=== PATIENT | female | born 1995 | race African-American/Black ===

== ENCOUNTER 2017-03-15 16:25 | Emergency (ER) | payer SELFPAY ==
[~2017-03-15] VITALS: Ht 162.6 cm; Wt 63.5 kg
[2017-03-15 16:31] VITALS: BP 135/84; PULSE 85; RESP 15; TEMP 97.9; O2SAT 99
--- NOTE | 2017-03-15 16:35 | PD ---
Physical Exam Time Seen by Provider: 16:33 Narrative 21 y/o female with vaginal bleeding for 3-4 months, lightheadedness intermittently for one month. Vital signs reviewed. Seen at triage desk. Awaiting bed placement. Data Data Last Documented VS Vital Signs Date Time Temp Pulse Resp B/P Pulse Ox O2 Delivery O2 Flow Rate FiO2 03/15/17 16:31 97.9 85 15 135/84 99 MDM Medical Record Reviewed: Yes Supervised Visit with [facility]: No Scripts No Active Prescriptions or Reported Meds Mario Gutierrez March 15, 2017 16:35
[2017-03-15] MEDS ORDERED: SODIUM CHLOR 0.9% 1000 ML INJ 1,000 ML IV SCH (17:08)
[2017-03-15] MEDS ORDERED: SODIUM CHLORIDE 0.9% FLUSH 10 ML FLUSH IV FLUSH PRN (17:15)
--- NOTE | 2017-03-15 17:52 | PD ---
HPI Chief Complaint: Dizziness Time Seen by Provider: 17:24 Travel History International Travel<30 days: No Contact w/Intl Traveler<30days: No Traveled to known affect area: No History of Present Illness HPI 21-year-old female presents with dizziness which has fairly severe tonight but has been lasting for 3 months. Patient states she's been having a period ever since November. She states she was on control the past but it didn't work for her since she has not followed up with her MARKETING DEVELOPMENT REPRESENTATIVE since turning 20 in April. She states she's been bleeding on-and-off sporadically and has a history of irregular periods. She denies blood clot passage. She states that today at work she was feeling fairly dizzy and her boss that she didn't look well and sent her home and the patient decided to come the emergency department to be seen. She denies any chest pain shortness of breath abdominal pain nausea vomiting or diarrhea. PFSH Past Medical History Cardiovascular Problems: Yes (HTN) Hypertension: Yes (NO LONGER ON MEDS) ?: Not Social History Alcohol Use: No Tobacco Use: No Substance Use: No Allergies-Medications (Allergen,Severity, Reaction): Coded Allergies: No Known Allergies (Unverified , 03/15/17) Reported Meds & Prescriptions Reported Meds & Active Scripts Active Ferrous Sulfate 325 Mg Tab 325 Mg PO DAILY Review of Systems Except as stated in HPI: all other systems reviewed are Neg Physical Exam Narrative GENERAL: Well-developed well-nourished no apparent distress SKIN: Focused skin assessment warm/dry. HEAD: Atraumatic. Normocephalic. EYES: Pupils equal and round. No scleral icterus. No injection or drainage. No conjunctival pallor. ENT: No nasal bleeding or discharge. Mucous membranes pink and moist. NECK: Trachea midline. No JVD. CARDIOVASCULAR: Regular rate and rhythm. No murmur appreciated. RESPIRATORY: No accessory muscle use. Clear to auscultation. Breath sounds equal bilaterally. GASTROINTESTINAL: Abdomen soft, non-tender, nondistended. Hepatic and splenic margins not palpable. GENITOURINARY: Exam performed with female nurse lock tender present at all times, there is minimal blood in the posterior fornix, no cervical motion tenderness no cervical lesions seen. No bimanual tenderness no cervical motion tenderness. MUSCULOSKELETAL: No obvious deformities. No clubbing. No cyanosis. No edema. NEUROLOGICAL: Awake and alert. No obvious cranial nerve deficits. Motor grossly within normal limits. Normal speech. PSYCHIATRIC: Appropriate mood and affect; insight and judgment normal. Data Data Last Documented VS Vital Signs Date Time Temp Pulse Resp B/P Pulse Ox O2 Delivery O2 Flow Rate FiO2 03/15/17 19:45 76 18 100/58 98 03/15/17 18:04 Room Air 03/15/17 16:31 97.9 Orders Basic Metabolic Panel (Bmp) (03/15/17 17:08) Complete Blood Count With Diff (03/15/17 17:08) Urinalysis - C+S If Indicated (03/15/17 17:08) Iv Access Insert/Monitor (03/15/17 17:08) Ecg Monitoring (03/15/17 17:08) Oximetry (03/15/17 17:08) Sodium Chlor 0.9% 1000 Ml Inj (Ns 1000 M (03/15/17 17:08) Sodium Chloride 0.9% Flush (Ns Flush) (03/15/17 17:15) Electrocardiogram (03/15/17 17:08) Ed Urine Pregnancytest Poc (03/15/17 17:08) Wet Prep Profile (03/15/17 17:08) Gc And Chlamydia Pcr (03/15/17 17:08) Labs Laboratory Tests Test 03/15/17 17:45 White Blood Count 7.9 TH/MM3 Red Blood Count 3.93 MIL/MM3 Hemoglobin 9.9 GM/DL Hematocrit 31.5 % Mean Corpuscular Volume 80.2 FL Mean Corpuscular Hemoglobin 25.3 PG Mean Corpuscular Hemoglobin 31.5 % Concent Red Cell Distribution Width 14.2 % Platelet Count 291 TH/MM3 Mean Platelet Volume 8.0 FL Neutrophils (%) (Auto) 52.1 % Lymphocytes (%) (Auto) 34.6 % Monocytes (%) (Auto) 10.3 % Eosinophils (%) (Auto) 2.3 % Basophils (%) (Auto) 0.7 % Neutrophils # (Auto) 4.1 TH/MM3 Lymphocytes # (Auto) 2.8 TH/MM3 Monocytes # (Auto) 0.8 TH/MM3 Eosinophils # (Auto) 0.2 TH/MM3 Basophils # (Auto) 0.1 TH/MM3 CBC Comment DIFF FINAL Differential Comment Urine Color YELLOW Urine Turbidity CLEAR Urine pH 6.0 Urine Specific [place] 1.024 Urine Protein NEG mg/dL Urine Glucose (UA) NEG mg/dL Urine Ketones NEG mg/dL Urine Occult Blood SMALL Urine Nitrite NEG Urine Bilirubin NEG Urine Urobilinogen LESS THAN 2.0 MG/DL Urine Leukocyte Esterase TRACE Urine RBC 1 /hpf Urine WBC 2 /hpf Urine Squamous Epithelial 4 /hpf Cells Urine Mucus FEW /lpf Microscopic Urinalysis Comment CULT NOT INDICATED Sodium Level 139 MEQ/L Potassium Level 3.7 MEQ/L Chloride Level 106 MEQ/L Carbon Dioxide Level 27.3 MEQ/L Anion Gap 6 MEQ/L Blood Urea Nitrogen 9 MG/DL Creatinine 0.72 MG/DL Estimat Glomerular Filtration 123 ML/MIN Rate Random Glucose 70 MG/DL Calcium Level 8.3 MG/DL [facility] Medical Decision Making Medical Screen Exam Complete: Yes Emergency Medical Condition: Yes Interpretation(s) EKG shows normal sinus rhythm with sinus arrhythmia, normal axis and normal R- wave progression. Minimal ST elevation in V2 solitary change appears to be consistent with early repolarization. Nonspecific RSR prime pattern in the same lead. This is nonspecific and non-ischemic EKG. Differential Diagnosis Arrhythmia unlikely, anemia, dysfunctional uterine bleeding, . Narrative Course test negative, patient appears well in no apparent distress. She is mildly anemic with hemoglobin 9.9. Discussed iron pills. Discussed she needs follow-up with an MARKETING DEVELOPMENT REPRESENTATIVE and a referral was made. She will touch base with her patient assistance program as well. She is stable for discharge at this time. Diagnosis Primary Impression: DUB (dysfunctional uterine bleeding) Additional Impression: Anemia Qualified Code: D50.8 - Other iron deficiency anemia Referrals: Sabine Brian MD Med/Other Pt SpecificInfo: Prescription(s) given Scripts Ferrous Sulfate 325 Mg [id number] Mg PO DAILY #30 TAB Ref 0 Prov:Armin Spann MD 03/15/17 Disposition: 01 DISCHARGE HOME Condition: Stable Armin Spann MD March 15, 2017 17:52
[2017-03-15 18:03] VITALS: BP 123/79; PULSE 64; RESP 16; O2SAT 100
[2017-03-15 18:04] VITALS: O2SAT 100
[2017-03-15 18:07] LABS: AUTOMATED NEUTROPHIL # 4.1 TH/MM3 (1.8-7.7); BASOPHIL # 0.1 TH/MM3 (0-0.2); BASOPHIL % 0.7 % (0.0-2.0); EOSINOPHIL # 0.2 TH/MM3 (0-0.4); EOSINOPHIL % 2.3 % (0.0-4.0); HEMATOCRIT 31.5 % (35.0-46.0); HEMO FLAGS DIFF FINAL; LYMPH % 34.6 % (9.0-44.0); LYMPHOCYTE # 2.8 TH/MM3 (1.0-4.8); MEAN CELL VOLUME 80.2 FL (80.0-100.0); MEAN CORPUSCULAR HEMOGLOBIN 25.3 PG (27.0-34.0); MEAN CORPUSCULAR HGB CONC 31.5 % (32.0-36.0); MONO % 10.3 % (0.0-8.0); NEUT % 52.1 % (16.0-70.0); PLATELET COUNT 291 TH/MM3 (150-450); RED BLOOD COUNT 3.93 MIL/MM3 (4.00-5.30); RED CELL DISTRIBUTION WIDTH 14.2 % (11.6-17.2); WHITE BLOOD COUNT 7.9 TH/MM3 (4.0-11.0)
[2017-03-15 18:15] LABS: BLOOD, URINE SMALL (NEG); GLUCOSE,URINE NEG (NEG); KETONE, URINE NEG (NEG); MUCUS URINE FEW /lpf (OCC); NITRITE,URINE NEG (NEG); SQUAMOUS EPITHELIAL CELL URINE 4 /hpf (0-5); URINE COLOR YELLOW (YELLW/STRAW)
[2017-03-15 18:17] LABS: COMMENT (UR) CULT NOT INDICATED; CULTURE IF INDICATED CULT NOT INDICATED
[2017-03-15 18:23] LABS: BICARBONATE 27.3 MEQ/L (21.0-32.0); POTASSIUM 3.7 MEQ/L (3.5-5.1)
[2017-03-15] MEDS ORDERED: FERR325T PO (18:58)
[2017-03-15 19:45] VITALS: BP 100/58
[2017-03-15 21:52] LABS: CHLAMYDIA PCR NOT DETECTED (NOT DETECT); NEISSERIA PCR NOT DETECTED (NOT DETECT)
[2017-03-16] MEDS ORDERED: HYDR-3533 PO ×2 (04:23→04:26)
[2017-03-16] MEDS ORDERED: CEPH-460 PO ×2 (04:23→04:26)
--- NOTE | 2017-03-16 08:51 | EKG ---
Date Performed: 03/15/2017 Time Performed: 17:32:23 PTAGE: 21 years EKG: Sinus rhythm WITH SINUS ARRHYTHMIA POSSIBLE RIGHT VENTRICULAR CONDUCTION DELAY NONSPECIFIC ST ELEVATION BORDERLIN E ECG NO PREVIOUS TRACING DOCTOR: José Miguel Mata Interpretating Date/Time 03/16/2017 08:49:19
== END 2017-03-15 19:57 | disposition home or self-care (01) ==
LOC: NEPD 16:25
DX: N93.8 Other specified abnormal uterine and vaginal bleeding (principal); D64.9 Anemia, unspecified; R42 Dizziness and giddiness; I10 Essential (primary) hypertension; I49.8 Other specified cardiac arrhythmias
CPT/HCPCS: 80048; 81001; 84703; 85025; 87210; 87491; 87591; 93005; 99284; J7030

== ENCOUNTER 2017-03-16 02:00 | Emergency (ER) | payer SELFPAY ==
[~2017-03-16] VITALS: Ht 162.6 cm; Wt 65.0 kg
[~2017-03-16 02:00] MED LIST: FERR325T PO
[2017-03-16 02:06] VITALS: BP 146/76; PULSE 104; RESP 18; TEMP 98.5; O2SAT 100
[2017-03-16] MEDS ORDERED: SODIUM CHLOR 0.9% 1000 ML INJ 1,000 ML IV SCH (02:16)
[2017-03-16] MEDS ORDERED: ONDANSETRON HCL 4 MG/2 ML VIAL IVP ONE (02:30)
[2017-03-16] MEDS ORDERED: ceFAZolin 2 GM PREMIX 50 ML IV ONE (02:30)
[2017-03-16] MEDS ORDERED: SODIUM CHLOR 0.9% 1000 ML INJ 1,000 ML IV ONE (02:30)
[2017-03-16] MEDS ORDERED: DIPHTH/TETANUS/ACEL PERTUSSIS (BOOSTER) 0.5 ML VIAL/PFS IM ONE (02:30)
[2017-03-16] MEDS ORDERED: SODIUM CHLORIDE 0.9% FLUSH 10 ML FLUSH IVF PRN (02:30)
[2017-03-16] MEDS ORDERED: MORPHINE SULFATE 4 MG/ML INJ IV ONE (02:30)
[2017-03-16 02:34] LABS: AUTOMATED NEUTROPHIL # 5.2 TH/MM3 (1.8-7.7); BASOPHIL % 0.4 % (0.0-2.0); EOSINOPHIL # 0.1 TH/MM3 (0-0.4); EOSINOPHIL % 1.2 % (0.0-4.0); HEMATOCRIT 30.4 % (35.0-46.0); HEMO FLAGS DIFF FINAL; LYMPH % 42.2 % (9.0-44.0); LYMPHOCYTE # 4.5 TH/MM3 (1.0-4.8); MEAN CELL VOLUME 80.4 FL (80.0-100.0); MEAN CORPUSCULAR HEMOGLOBIN 25.4 PG (27.0-34.0); MEAN CORPUSCULAR HGB CONC 31.5 % (32.0-36.0); MONO % 7.8 % (0.0-8.0); NEUT % 48.4 % (16.0-70.0); PLATELET COUNT 309 TH/MM3 (150-450); RED BLOOD COUNT 3.78 MIL/MM3 (4.00-5.30); RED CELL DISTRIBUTION WIDTH 14.4 % (11.6-17.2); WHITE BLOOD COUNT 10.8 TH/MM3 (4.0-11.0)
[2017-03-16 02:45] VITALS: O2SAT 99
[2017-03-16 02:48] LABS: APTT (PATIENT) 24.5 SEC (24.3-30.1); PROTHROMBIN TIME - PATIENT 11.4 SEC (9.8-11.6)
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
[2017-03-16 03:04] LABS: ALT (GPT) 27 U/L (10-53); ANION GAP 9 MEQ/L (5-15); AST (GOT) 26 U/L (15-37); BICARBONATE 23.4 MEQ/L (21.0-32.0); BLOOD UREA NITROGEN 11 MG/DL (7-18); CHLORIDE 106 MEQ/L (98-107); GLOMERULAR FILTRATION RATE 104 ML/MIN (>89); POTASSIUM 3.3 MEQ/L (3.5-5.1); SODIUM (NA) 138 MEQ/L (136-145)
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
[2017-03-16 03:06] LABS: ALKALINE PHOSPHATASE 78 U/L (45-117); TOTAL BILIRUBIN ADULT 0.3 MG/DL (0.2-1.0)
[2017-03-16 04:02] LABS: BLOOD, URINE SMALL (NEG); COMMENT (UR) CULT NOT INDICATED; CULTURE IF INDICATED CULT NOT INDICATED; GLUCOSE,URINE NEG (NEG); KETONE, URINE NEG (NEG); MUCUS URINE FEW /lpf (OCC); NITRITE,URINE NEG (NEG); SQUAMOUS EPITHELIAL CELL URINE 1 /hpf (0-5); URINE COLOR LIGHT-YELLOW (YELLW/STRAW)
[2017-03-16] MEDS ORDERED: ACETAMINOPHEN/HYDROcodone 325 MG/5 MG TAB PO ONE (04:15)
[2017-03-16] MEDS ORDERED: HYDR-3533 PO ×2 (04:23→04:26)
[2017-03-16] MEDS ORDERED: CEPH-460 PO ×2 (04:23→04:26)
== END 2017-03-16 05:26 | disposition home or self-care (01) ==
LOC: NEPC 02:00
DX: S41.101A Unspecified open wound of right upper arm, initial encounter (principal); M79.621 Pain in right upper arm; W34.00XA Accidental discharge from unspecified firearms or gun, initial encounter; Y92.39 Other specified sports and athletic area as the place of occurrence of the external cause; Z23 Encounter for immunization
CPT/HCPCS: 71010; 73060; 80053; 81001; 84703; 85025; 85610; 85730; 90471; 90715; 96374; 96375; 99283; J0690; J2270; J2405; J7030

== ENCOUNTER 2017-07-31 20:15 | Emergency (ER) | payer SELFPAY ==
[~2017-07-31 20:15] MED LIST changes: +CEPH-460 PO; +HYDR-3533 PO
[2017-07-31 20:17] VITALS: BP 130/61; PULSE 67; RESP 16; TEMP 98.5; O2SAT 99
[2017-07-31] MEDS ORDERED: SODIUM CHLOR 0.9% 1000 ML INJ 1,000 ML IV ONE (21:30)
[2017-07-31] MEDS ORDERED: SODIUM CHLORIDE 0.9% FLUSH 10 ML FLUSH IVF PRN (21:30)
[2017-07-31 21:35] VITALS: BP 115/75; PULSE 62; RESP 18; O2SAT 100
[2017-07-31 21:52] LABS: AUTOMATED NEUTROPHIL # 4.1 TH/MM3 (1.8-7.7); BASOPHIL % 0.5 % (0.0-2.0); EOSINOPHIL # 0.3 TH/MM3 (0-0.4); EOSINOPHIL % 3.5 % (0.0-4.0); HEMATOCRIT 33.3 % (35.0-46.0); HEMO FLAGS DIFF FINAL; LYMPH % 30.8 % (9.0-44.0); LYMPHOCYTE # 2.3 TH/MM3 (1.0-4.8); MEAN CORPUSCULAR HEMOGLOBIN 26.8 PG (27.0-34.0); MEAN CORPUSCULAR HGB CONC 31.8 % (32.0-36.0); MONO % 9.3 % (0.0-8.0); NEUT % 55.9 % (16.0-70.0); PLATELET COUNT 244 TH/MM3 (150-450); RED BLOOD COUNT 3.96 MIL/MM3 (4.00-5.30); RED CELL DISTRIBUTION WIDTH 14.7 % (11.6-17.2); WHITE BLOOD COUNT 7.4 TH/MM3 (4.0-11.0)
--- NOTE | 2017-07-31 21:57 | PD ---
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 She reports that she has had irregular vaginal bleeding for the past 9 months, which that for the past 3 days, reports that she noticed some blood clots recently. Patient reports that she was diagnosed in the emergency room with anemia 4 months ago, she reports that she felt lightheaded and dizzy at work today and wanted to make sure her hemoglobin was okay. Reports that she has never had a blood transfusion in the past for anemia. Patient reports that she has had an irregular menstrual cycle since she was 16 years old, reports that she did well and her bleeding was controlled when she was on control pills reports that after she turned 20, she lost her insurance and has not been able to follow up with anyone for her control pills. Denies any vaginal discharge at this time. Denies any abdominal pain. Denies n/v. No other complaints at this time. PFSH Past Medical History Anemia: Yes Cardiovascular Problems: Yes (HTN) Diminished Hearing: No Hypertension: Yes Tetanus Vaccination: < 5 Years ?: Not LMP: vaginal bleeding for 9 months Past Surgical History Surgical History: No Previous Surgery Social History Alcohol Use: Yes (occasional) Tobacco Use: No Substance Use: No Allergies-Medications (Allergen,Severity, Reaction): Coded Allergies: No Known Allergies (Unverified , 07/31/17) Reported Meds & Prescriptions Reported Meds & Active Scripts Active No Active Prescriptions or Reported Medications Review of Systems General / Constitutional: No: Fever Eyes: No: Visual changes HENT: No: Headaches Cardiovascular: No: Chest Pain or Discomfort Respiratory: No: Shortness of Breath Gastrointestinal: No: Abdominal Pain Genitourinary: Positive: Vaginal Bleeding, No: Dysuria Musculoskeletal: No: Pain Skin: No Rash Neurologic: Positive: Dizziness, Headache, No: Weakness Psychiatric: No: Depression Endocrine: No: Polydipsia Hematologic/Lymphatic: No: Easy Bruising Physical Exam Narrative GENERAL: NAD, nontoxic SKIN: Focused skin assessment warm/dry. HEAD: Atraumatic. Normocephalic. EYES: Pupils equal and round. No scleral icterus. No injection or drainage. ENT: No nasal bleeding or discharge. Mucous membranes pink and moist. NECK: Trachea midline. No JVD. CARDIOVASCULAR: Regular rate and rhythm. No murmur appreciated. RESPIRATORY: No accessory muscle use. Clear to auscultation. Breath sounds equal bilaterally. GASTROINTESTINAL: Abdomen soft, non-tender, nondistended. Hepatic and splenic margins not palpable. MUSCULOSKELETAL: No obvious deformities. No clubbing. No cyanosis. No edema. NEUROLOGICAL: Awake and alert. No obvious cranial nerve deficits. Motor grossly within normal limits. Normal speech. PSYCHIATRIC: Appropriate mood and affect; insight and judgment normal. Data Data Last Documented VS Vital Signs Date Time Temp Pulse Resp B/P (MAP) Pulse Ox O2 Delivery O2 Flow Rate FiO2 07/31/17 21:35 62 18 115/75 (88) 100 Room Air 07/31/17 20:17 98.5 Orders Orders Beta Hcg (Quant/Titer) (07/31/17 21:30) Complete Blood Count With Diff (07/31/17 21:30) Basic Metabolic Panel (Bmp) (07/31/17 21:30) Urinalysis - C+S If Indicated (07/31/17 21:30) Sodium Chloride 0.9% Flush (Ns Flush) (07/31/17 21:30) Sodium Chlor 0.9% 1000 Ml Inj (Ns 1000 M (07/31/17 21:30) Ed Urine Pregnancytest Poc (07/31/17 21:30) Labs Laboratory Tests Test 07/31/17 21:40 07/31/17 23:05 White Blood Count 7.4 TH/MM3 Red Blood Count 3.96 MIL/MM3 Hemoglobin 10.6 GM/DL Hematocrit 33.3 % Mean Corpuscular Volume 84.0 FL Mean Corpuscular Hemoglobin 26.8 PG Mean Corpuscular Hemoglobin Concent 31.8 % Red Cell Distribution Width 14.7 % Platelet Count 244 TH/MM3 Mean Platelet Volume 7.9 FL Neutrophils (%) (Auto) 55.9 % Lymphocytes (%) (Auto) 30.8 % Monocytes (%) (Auto) 9.3 % Eosinophils (%) (Auto) 3.5 % Basophils (%) (Auto) 0.5 % Neutrophils # (Auto) 4.1 TH/MM3 Lymphocytes # (Auto) 2.3 TH/MM3 Monocytes # (Auto) 0.7 TH/MM3 Eosinophils # (Auto) 0.3 TH/MM3 Basophils # (Auto) 0.0 TH/MM3 CBC Comment DIFF FINAL Differential Comment Blood Urea Nitrogen 10 MG/DL Creatinine 0.72 MG/DL Random Glucose 86 MG/DL Calcium Level 8.0 MG/DL Sodium Level 141 MEQ/L Potassium Level 3.5 MEQ/L Chloride Level 106 MEQ/L Carbon Dioxide Level 28.4 MEQ/L Anion Gap 7 MEQ/L Estimat Glomerular Filtration Rate 121 ML/MIN Human Chorionic Gonadotropin, Quant LESS THAN 1 MIU/ML Urine Color LIGHT-YELLOW Urine Turbidity CLEAR Urine pH 7.0 Urine Specific Dalton 1.011 Urine Protein NEG mg/dL Urine Glucose (UA) NEG mg/dL Urine Ketones NEG mg/dL Urine Occult Blood MOD Urine Nitrite NEG Urine Bilirubin NEG Urine Urobilinogen LESS THAN 2.0 MG/DL Urine Leukocyte Esterase NEG Urine RBC LESS THAN 1 /hpf Urine WBC 1 /hpf Urine Squamous Epithelial Cells 1 /hpf Urine Mucus FEW /lpf Microscopic Urinalysis Comment CULT NOT INDICATED MDM Medical Decision Making Medical Screen Exam Complete: Yes Emergency Medical Condition: Yes Interpretation(s) Vital Signs Date Time Temp Pulse Resp B/P (MAP) Pulse Ox O2 Delivery O2 Flow Rate FiO2 07/31/17 21:35 62 18 115/75 (88) 100 Room Air 07/31/17 20:17 98.5 67 16 130/61 (84) 99 Room Air Differential Diagnosis Differential includes anemia, irregular vaginal bleeding. electrolyte abnormality Narrative Course Patient is a 22 year old female who presents to ER with complaints of irregular vaginal bleeding for the past 9 months. Reports that she has been feeling lightheaded and dizzy for the past few days, reports history of anemia which was diagnosed 4 months ago in the emergency room. Patient with no abdominal pain or vaginal discharge on exam. Plan to obtain blood work to check HGB. Will check HCG quant. Will monitor patient CBC & BMP Diagram 07/31/17 21:40 Calcium Level 8.0 L hbg 10.6, baseline hgb 9.6 (from 03/16/17) Patient re-evaluated. patient feeling much better. Plan to discharge patient with follow up with dry pan operator as outpatient for workup for DUB. She will return to ER as needed. Patient stable to be discharged to home at this time. Patient feeling much better at this time. Diagnosis Primary Impression: Anemia Qualified Codes: D64.9 - Anemia, unspecified Additional Impression: DUB (dysfunctional uterine bleeding) Referrals: [facility] Patient Instructions: General Instructions Additional Instructions: Return to ER as needed Please follow up with your telemetry nurse as soon as possible for further workup of your irregular vaginal bleeding. Return to the emergency room if symptoms worsen or progress Scripts No Active Prescriptions or Reported Meds Disposition: 01 DISCHARGE HOME Condition: Stable Deidre Jimenez DO Jul 31, 2017 21:56
[2017-07-31 22:12] LABS: ANION GAP 7 MEQ/L (5-15); BICARBONATE 28.4 MEQ/L (21.0-32.0); BLOOD UREA NITROGEN 10 MG/DL (7-18); CHLORIDE 106 MEQ/L (98-107); GLOMERULAR FILTRATION RATE 121 ML/MIN (>89); POTASSIUM 3.5 MEQ/L (3.5-5.1); SODIUM (NA) 141 MEQ/L (136-145)
[2017-07-31 22:15] LABS: BETA HCG QUANT LESS THAN 1 MIU/ML (0-5)
[2017-07-31 23:18] LABS: BLOOD, URINE MOD (NEG); COMMENT (UR) CULT NOT INDICATED; CULTURE IF INDICATED CULT NOT INDICATED; GLUCOSE,URINE NEG (NEG); KETONE, URINE NEG (NEG); MUCUS URINE FEW /lpf (OCC); NITRITE,URINE NEG (NEG); SQUAMOUS EPITHELIAL CELL URINE 1 /hpf (0-5); URINE COLOR LIGHT-YELLOW (YELLW/STRAW)
[2017-07-31 23:48] VITALS: BP 119/79
== END 2017-08-01 | disposition home or self-care (01) ==
LOC: NEPC 20:15
DX: D64.9 Anemia, unspecified (principal); N93.8 Other specified abnormal uterine and vaginal bleeding; I10 Essential (primary) hypertension
CPT/HCPCS: 80048; 81001; 84702; 84703; 85025; 99283; J7030

== ENCOUNTER 2017-08-08 21:22 | Emergency (ER) | payer SELFPAY ==
[~2017-08-08] VITALS: Ht 162.6 cm; Wt 68.0 kg
[2017-08-08 21:22] VITALS: BP 163/99; PULSE 84; RESP 15; TEMP 98.5; O2SAT 98
--- NOTE | 2017-08-08 21:33 | PD ---
Physical Exam Date Seen by Provider: Aug 08, 2017 Time Seen by Provider: 21:32 Narrative 22 yo female here for vaginal bleeding. Going on for 1 month. Not getting better. Per patient worse with cloths. has not seen LIQUOR INSPECTOR and wont be able till 1 month. Seen here last tuesday. Vitals stable in triage. Awaiting bed placement. Data Data Last Documented VS Vital Signs Date Time Temp Pulse Resp B/P (MAP) Pulse Ox O2 Delivery O2 Flow Rate FiO2 08/08/17 21:22 98.5 84 15 163/99 (120) 98 Room Air [facility] Medical Record Reviewed: Yes Supervised Visit with SYED: No Scripts No Active Prescriptions or Reported Meds [place] Aug 08, 2017 21:33
[2017-08-08 22:22] LABS: HEMATOCRIT 34.1 % (35.0-46.0); REVIEW FLAG FINAL
[2017-08-08 22:26] VITALS: BP_SYST 134; BP_SYST 135; BP_SYST 145; BP_DIAS 86; BP_DIAS 90; BP_DIAS 97; RESP 16
[2017-08-08] MEDS ORDERED: PROV5TAB PO (22:30)
--- NOTE | 2017-08-08 22:30 | PD ---
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 Patient was seen and evaluated last week here in the emergency department for the same complaint. This is been ongoing for 9 months. She feels that may be heavier over the last week. She has not yet followed up with gynecology. She has appointment on 28 August. States she is changing a pad 4 times a day. She does sleep through it at times. Denies any pain. Patient's beta-hCG was negative on her most recent visit. She denies any chest pain or tightness. No shortness of breath. States at times she does get lightheaded or dizzy but is not currently. She has no other symptoms to report. PFSH Past Medical History Anemia: Yes Cardiovascular Problems: Yes (HTN) Diminished Hearing: No Hypertension: Yes ?: Not : 0 Past Surgical History Surgical History: No Previous Surgery Social History Alcohol Use: Yes (occasional) Tobacco Use: No Substance Use: No Allergies-Medications (Allergen,Severity, Reaction): Coded Allergies: No Known Allergies (Unverified , 08/08/17) Reported Meds & Prescriptions Reported Meds & Active Scripts Active Provera (Medroxyprogesterone Acetate) 5 Mg Tab 5 Mg PO DAILY Start day 21 Review of Systems Except as stated in HPI: all other systems reviewed are Neg Physical Exam Narrative GENERAL: Well-nourished female patient, ambulatory no acute distress SKIN: Focused skin assessment warm/dry. HEAD: Atraumatic. Normocephalic. EYES: Pupils equal and round. No scleral icterus. No injection or drainage. ENT: No nasal bleeding or discharge. Mucous membranes pink and moist. NECK: Trachea midline. No JVD. CARDIOVASCULAR: Regular rate and rhythm. No murmur appreciated. RESPIRATORY: No accessory muscle use. Clear to auscultation. Breath sounds equal bilaterally. GASTROINTESTINAL: Abdomen soft, non-tender, nondistended. Hepatic and splenic margins not palpable. MUSCULOSKELETAL: No obvious deformities. No clubbing. No cyanosis. No edema. NEUROLOGICAL: Awake and alert. No obvious cranial nerve deficits. Motor grossly within normal limits. Normal speech. PSYCHIATRIC: Appropriate mood and affect; insight and judgment normal. Data Data Last Documented VS Vital Signs Date Time Temp Pulse Resp B/P (MAP) Pulse Ox O2 Delivery O2 Flow Rate FiO2 08/08/17 22:41 08/08/17 22:26 67 16 65 16 74 16 08/08/17 21:22 98.5 98 Room Air Orders Orders Hgb & Hct (08/08/17 21:59) Orthostatic Vital Signs (08/08/17 22:12) Labs Laboratory Tests Test 08/08/17 22:00 Hemoglobin 10.9 GM/DL Hematocrit 34.1 % MDM Medical Decision Making Medical Screen Exam Complete: Yes Emergency Medical Condition: Yes Medical Record Reviewed: Yes Differential Diagnosis Dysfunctional uterine bleeding versus symptomatically anemia versus chronic anemia versus menses versus dysmenorrhea versus menorrhagia Narrative Course 22-year-old female presents to emergency department for evaluation of vaginal bleeding 9 months. Patient appears distress. Vital signs are stable. She is concerned she is leaving more than she was last week. Patient did bleed through her trey-pad while she was here in the emergency department. H&H will be repeated. Hemoglobin is 10.9, this is actually increased from last week. Patient does not smoke tobacco cigarettes. We'll try 5 days of Provera to slow the bleeding. I have instructed her to keep her appointment with her industrial economist and to return immediately with any acute worsening symptoms. Diagnosis Primary Impression: DUB (dysfunctional uterine bleeding) Additional Impression: Anemia Qualified Codes: D64.9 - Anemia, unspecified Referrals: Primary Care Physician Patient Instructions: Dysfunctional Uterine Bleeding (ED), General Instructions Additional Instructions: Follow-up with a industrial economist Keep your appointment Return immediately with any acute worsening of symptoms Med/Other Pt SpecificInfo: Prescription(s) given Scripts Medroxyprogesterone Acetate (Provera) 5 Mg Tab 5 MG PO DAILY for Uterine bleeding, #5 TAB Start day 21 Prov: Indira Clinton 08/08/17 Disposition: 01 DISCHARGE HOME Condition: Stable Indira Clinton Aug 08, 2017 22:30
== END 2017-08-08 22:51 | disposition home or self-care (01) ==
LOC: NEPK 21:22
DX: N93.8 Other specified abnormal uterine and vaginal bleeding (principal); D64.9 Anemia, unspecified
CPT/HCPCS: 85014; 85018; 99283

== ENCOUNTER 2017-12-11 14:16 | Emergency (ER) | payer SELFPAY ==
[~2017-12-11] VITALS: Ht 162.6 cm; Wt 70.0 kg
[~2017-12-11 14:16] MED LIST changes: -CEPH-460 PO; -FERR325T PO; -HYDR-3533 PO; +PROV5TAB PO
[2017-12-11 14:17] VITALS: BP 120/75; PULSE 76; RESP 13; TEMP 98.5; O2SAT 100
[2017-12-11] MEDS ORDERED: IRON PILL PO (17:18)
[2017-12-11] MEDS ORDERED: BIRTH CONTROL PO (17:18)
[2017-12-11] MEDS ORDERED: METHOCARBAMOL 500 MG TAB PO ONE (17:30)
[2017-12-11] MEDS ORDERED: DICL50TA PO (17:37)
[2017-12-11] MEDS ORDERED: ROBA750T PO (17:37)
--- NOTE | 2017-12-11 17:38 | PD ---
HPI Chief Complaint: Back/ Neck Pain or Injury Time Seen by Provider: 17:20 Travel History International Travel<30 days: No Contact w/Intl Traveler<30days: No Traveled to known affect area: No History of Present Illness HPI 22-year-old female presents to the emergency department for evaluation of intermittent upper back that has been intermittent since . She states that it is worse with movement and lying in certain positions. Is relieved with other position changes. Patient states the pain will move across the upper back and up to the sides of the neck as well. She states that right now it is in her left shoulder due to lying on her right side. It is also in the right trapezius muscle as well. She denies any chest pain or shortness of breath. No abdominal pain. No nausea, vomiting, diarrhea. She is on control pills, but no other medications. Mild severity. PFSH Past Medical History Anemia: Yes Cardiovascular Problems: Yes (HTN) Diminished Hearing: No Hypertension: Yes ?: Not LMP: 11/2017 : 0 Social History Alcohol Use: Yes (occasional) Tobacco Use: No Substance Use: No Allergies-Medications (Allergen,Severity, Reaction): Coded Allergies: No Known Allergies (Unverified Adverse Reaction, Unknown, 12/11/17) Reported Meds & Prescriptions Reported Meds & Active Scripts Active Reported [ Control] 1 Tab PO DAILY [Iron Pill] 1 Tab PO DAILY Review of Systems Except as stated in HPI: all other systems reviewed are Neg Physical Exam Narrative GENERAL: Well-nourished, well-developed female patient, ambulatory. Afebrile. SKIN: Focused skin assessment warm/dry. HEAD: Normocephalic. Atraumatic. EYES: No scleral icterus. No injection or drainage. NECK: Supple, trachea midline. No JVD or lymphadenopathy. CARDIOVASCULAR: Regular rate and rhythm without murmurs, gallops, or rubs. RESPIRATORY: Breath sounds equal bilaterally. No accessory muscle use. Lungs sounds are clear to auscultation GASTROINTESTINAL: Abdomen soft, non-tender, nondistended. MUSCULOSKELETAL: No cyanosis, or edema. BACK: Nontender without obvious deformity. No CVA tenderness. Data Data Last Documented VS Vital Signs Date Time Temp Pulse Resp B/P (MAP) Pulse Ox O2 Delivery O2 Flow Rate FiO2 12/11/17 14:17 98.5 76 13 120/75 (90) 100 Orders Orders Methocarbamol (Robaxin) (12/11/17 17:30) [facility] Medical Decision Making Medical Screen Exam Complete: Yes Emergency Medical Condition: Yes Medical Record Reviewed: Yes Differential Diagnosis Muscle strain versus muscle spasm versus chronic back pain Narrative Course 22-year-old female presents to the emergency department for evaluation intermittent upper back pain is worse with movement and certain position changes. Ongoing since . She had no injury and appears well on exam. Lungs sounds are clear to auscultation. PE is unlikely. Muscle strain, muscle pain is most likely. Robaxin 500 mg by mouth is given. She'll be discharged with a prescription for diclofenac and Robaxin. She is encouraged to follow-up with a primary care physician. She is return here for any acute worsening of symptoms. The patient was discharged in stable condition with instructions, including return instructions and follow up instructions. Diagnosis Primary Impression: Thoracic back pain Qualified Codes: M54.6 - Pain in thoracic spine; G89.29 - Other chronic pain Referrals: Primary Care Physician call for appointment Patient Instructions: General Instructions, Muscle Strain (ED) Departure Forms: Tests/Procedures, Work Release Enter return to work date: Dec 13, 2017 Additional Instructions: Take diclofenac as directed as needed with food for pain. Do not take with other anti-inflammatories including ibuprofen and naproxen. Take Robaxin as instructed as needed. Heating pad on low for 20 minutes 4-5 times daily. Follow-up with your primary care physician. Return to the emergency department for any acute worsening of symptoms. Med/Other Pt SpecificInfo: Prescription(s) given Scripts Methocarbamol (Robaxin) 750 Mg Tab 750 MG PO TID Y for MUSCLE SPASM, #21 TAB 0 Refills Prov: Graciela Vargas 12/11/17 Diclofenac Potassium (Diclofenac Potassium) 50 Mg Tab 50 MG PO TID Y for PAIN SCALE 1 TO 10, #21 TAB 0 Refills Prov: Graciela Vargas 12/11/17 Disposition: 01 DISCHARGE HOME Condition: Stable Graciela Vargas Dec 11, 2017 17:38
== END 2017-12-11 17:58 | disposition home or self-care (01) ==
LOC: NEPD 14:16
DX: M54.6 Pain in thoracic spine (principal); G89.29 Other chronic pain
CPT/HCPCS: 99284